=== PATIENT | female | born 1940 | race Caucasian/White ===

== ENCOUNTER 2017-08-10 19:06 | Emergency (ER) | payer OTHER ==
[~2017-08-10] VITALS: Ht 165.1 cm; Wt 70.5 kg
[~2017-08-10 19:06] MED LIST: CHOL400T PO; CYTOMEL PO; GLGKIT PO; INSU100I SC; INSUINJ17 SQ; LEVO100T PO; LVMIPEN SC; MCRK/20 PO; MULT-188 PO; PRM625 PO
[2017-08-10 19:16] VITALS: TEMP 36.5; Ht 165.1 cm; Wt 70.5 kg
[2017-08-10 20:03] LABS: CALCIUM 8.7 mg/dl (8.5-10.1); CREATININE 0.82 mg/dl (0.60-1.20); POTASSIUM 3.9 mmol/L (3.5-5.1)
--- NOTE | 2017-08-10 20:33 | EMERGENCY ROOM VISIT NOTE ---
History Report prepared by Alessio: Renetta Weir Under the Supervision of: Lee DiazO. First contact with patient: 19:11 Chief Complaint: HYPERTENSION Stated Complaint: HYPOGLYCEMIA, HTN History of Present Illness The patient is a 77 year old female who presents to the Emergency Room with complaints of persistent high blood sugar that started 2 hours ago. The patient reports she arrived home around 5pm from a dinner and she notes she took insulin after she ate. She states she felt fine. When she was home, she talked to her sister on the phone and she suggested she check her blood sugar. Her blood sugar was high so her called EMS. When they arrived, her blood sugar was still high so they gave her glucose. The patient's blood pressure was elevated and she states this is unusual for her. The patient denies any nausea. Source of History: patient Onset: 2 hours ago Position: other (low blood sugar) Timing: other (persistent) Associated Symptoms: No nausea Review of Systems See HPI for pertinent positives & negatives. A total of 10 systems reviewed and were otherwise negative. Past Medical & Surgical Hypoglycemia. Family History No pertinent family history Social History Smoking Status: Never Smoker Smokeless Tobacco Use: No Drug Use: none Marital Status: Housing Status: lives with significant other Current/Historical Medications Scheduled Cholecalciferol (Vitamin D), 1 CAP PO DAILY Estrogens, Conjugated (Premarin), 0.625 MG PO DAILY Insulin Detemir (Levemir Flexpen), SC Q12 Insulin Regular (Humulin-R), 2 UNITS SQ QAM Insulin Regular (Humulin-R), 3 UNITS SQ @ LUNCH AND DINNER Levothyroxine Sodium (Synthroid), 100 MCG PO DAILY Multiple Vitamins W/ Minerals (Ocuvite), 1 TAB PO DAILY Potassium Chloride (Potassium Chloride ER), 10 MEQ PO DAILY [Cytomel Sr 9.6 Mcg], 9.6 MCG PO DAILY Scheduled PRN Glucagon (Glucagon Emergency Kit), 1 MG PO UD PRN for prn Insulin Lispro (Human) (Humalog), UNITS SC DIRECTED PRN for prn Allergies Coded Allergies: Adhesives (Unverified Adverse Reaction, Unknown, TAPE "TAKES OFF SKIN". PAPER TAPE AND COBAND ARE OKAY TO USE, 09/27/13) Physical Exam Vital Signs Date Time Temp Pulse Resp B/P (MAP) Pulse Ox O2 Delivery O2 Flow Rate FiO2 08/10/17 20:15 86 20 154/62 96 Room Air 08/10/17 19:16 36.5 79 16 185/62 98 Room Air Physical Exam CONSTITUTIONAL/VITAL SIGNS: Reviewed / noted above. GENERAL: Non-toxic in appearance. INTEGUMENTARY: Warm, dry, and [place]. HEAD: Normocephalic. EYES: without scleral icterus or trauma. ENT/OROPHARYNX: clear and moist. LYMPHADENOPATHY/NECK: Is supple without lymphadenopathy or meningismus. RESPIRATORY: Lungs clear and equal. CARDIOVASCULAR: Regular rate and rhythm. GI/ABDOMEN: Soft and nontender. No organomegaly or pulsatile mass. No rebound or guarding. Normal bowel sounds. EXTREMITIES: Warm and well perfused. BACK: No CVA tenderness. NEUROLOGICAL: Intact without focal deficits. PSYCHIATRIC: normal affect. MUSCULOSKELETAL: Normally developed with good muscle tone. Medical Decision & Procedures Laboratory Results 08/10/17 19:40 Test 08/10/17 19:40 Anion Gap 8.0 mmol/L (3-11) Est Creatinine Clear Calc Drug Dose 58.4 ml/min Estimated GFR () 81.1 Estimated GFR (Non- 70.0 BUN/Creatinine Ratio 21.9 (10-20) Calcium Level 8.7 mg/dl (8.5-10.1) Laboratory results as stated above per my review. ED Course 1910: Previous medical records were reviewed. The patient was evaluated in room A12B. A complete history and physical examination was performed. 2028: On reevaluation, the patient is resting comfortably. I discussed the results and findings with the patient. She verbalized agreement of the treatment plan. She was discharged home. Medical Decision Differential includes acute coronary syndrome, myocardial infarction, CVA, TIA, anemia, infection, pneumonia, UTI, pyelonephritis, poor nutrition, dehydration, electrolyte disturbance,hypoglycemia. This is a 77-year-old female who presents to the ED with a chief complaint of hypoglycemia and hypertension. The patient is an insulin-dependent diabetic. She became confused and EMS was called and she was found to have a blood sugar of 36. They checked her blood pressure and it was elevated and they recommended she come in for evaluation. The patient has no additional complaints. She is feeling back to normal. She is awake, alert and oriented. Initial blood pressure is 185/62. This improved during her stay. Her sodium was 129 and chloride was 97. Glucose is 235. The patient was fed. She was feeling fine. She is felt to be stable for discharge. She does report chronic hyponatremia. The bulk of the patient's hypertension was likely stress related due to her hypoglycemic episode. Medication Reconcilliation Current Medication List: was personally reviewed by me Blood Pressure Screening Patient's blood pressure: Elevated blood pressure Blood pressure disposition: Elevated BP felt to be situational Impression Primary Impression: Hypoglycemia Additional Impression: Hypertension Scribe Attestation The scribe's documentation has been prepared under my direction and personally reviewed by me in its entirety. I confirm that the note above accurately reflects all work, treatment, procedures, and medical decision making performed by me. Departure Information Referrals Nahid Pena D.O. (PCP) Patient Instructions [facility] Problem Qualifiers
[2017-08-10] MEDS ORDERED: INSHRIE SC ×2 (20:39)
[2017-08-10] MEDS ORDERED: LEVO88TA PO (20:39)
[2017-08-10] MEDS ORDERED: LIOT25TA10 PO (20:39)
[2017-08-10] MEDS ORDERED: LVMI SC ×2 (20:39)
[2017-08-10 20:40] VITALS: BP 154/62; PULSE 86; O2SAT 96
== END 2017-08-10 20:40 | disposition home or self-care (01) ==
LOC: EDBD 19:06 → C.EDA 19:08
DX: E16.2 Hypoglycemia, unspecified (principal); I10 Essential (primary) hypertension; Z79.4 Long term (current) use of insulin

== ENCOUNTER 2018-12-20 12:49 | Inpatient (IN) ==
[2018-12-20] MEDS ORDERED: ASPIRIN CHEW 324 MG PO STA (13:07)
--- NOTE | 2018-12-20 13:30 | XRay Report ---
XR chest 1V portable CLINICAL HISTORY: Chest Pain dyspnea COMPARISON STUDY: 12/06/2018 FINDINGS: The bones soft tissues and hemidiaphragms are normal. The cardiomediastinal silhouette is n ormal. The lungs are clear. The pulmonary vasculature is normal. IMPRESSION: Negative chest. The above report was generated using voice recognition software. It may contain grammatical, syntax or spelling errors. Electronically signed by: Farzad Elizabeth M.D. 12/20/2018 1:29 PM
[2018-12-20 14:04] LABS: Basophils # (auto) 0.13 K/uL (0-0.2); Basophils % (auto) 1.4 %; Eosinophils # (auto) 0.06 K/uL (0-0.5); Eosinophils % (auto) 0.6 %; Hematocrit (blood only) 39.9 % (37-47); Hemoglobin 13.7 g/dL (12.0-16.0); Immature Granulocytes # (auto) 0.02 K/uL (0.00-0.02); Immature Granulocytes % (auto) 0.2 %; Lymphocytes # (auto) 1.72 K/uL (1.2-3.4); Lymphocytes % (auto) 18.2 %; Mean Corpuscular Hgb Conc 34.3 g/dL (32-36); Mean Corpuscular Volume 97.1 fL (80-100); Mean Platelet Volume 10.7 fL (7.4-10.4); Monocytes # (auto) 0.62 K/uL (0.11-0.59); Monocytes % (auto) 6.6 %; Neutrophils # (auto) 6.88 K/uL (1.4-6.5); Platelet Count 362 K/uL (130-400); RDW Coefficient of Variation 13.4 % (11.5-14.5); RDW Standard Deviation 47.5 fL (36.4-46.3); Red Blood Count 4.11 M/uL (4.2-5.4); White Blood Count 9.43 K/uL (4.8-10.8)
[2018-12-20 14:15] LABS: D Dimer 470 ug/L FEU (0-500); Partial Thromboplastin Time 27.9 Seconds (21.0-31.0)
[2018-12-20 14:19] LABS: Blood Urea Nitrogen 14 mg/dl (7-18); Calcium 8.7 mg/dl (8.5-10.1); Carbon Dioxide 24 mmol/L (21-32); Chloride 97 mmol/L (98-107); Est GFR (African American) 97.5; Est GFR (Non-African American) 84.2; Glucose 207 mg/dl (70-99); Potassium 3.9 mmol/L (3.5-5.1); Sodium 134 mmol/L (136-145)
[2018-12-20 14:21] LABS: Appearance Urine Clear (Clear); Bacteria Urine Automated Negative (Negative); Bilirubin Urine Negative (Negative); Blood Urine Negative (Negative); Cast Urine Automated 0 /lpf (0-5); Color Urine Yellow; Epithelial Cell Urine Auto >30 /lpf (0-5); Glucose Urine UA Trace (Negative); Ketones Urine 2+ (Negative); Leukocyte Esterase Urine Trace (Negative); Nitrite Urine Negative (Negative); Protein Urine Negative (Negative); RBC Urine Automated 0-4 /hpf (0-4); Specific Gravity Urine 1.016 (1.000-1.030); Urobilinogen Urine Negative (Negative)
[2018-12-20 14:24] LABS: Troponin I < 0.015 ng/ml (0-0.045)
[2018-12-20] MEDS ORDERED: dilTIAZem HCl 125 MG in DEXTROSE 5% 100 ML IV SCH (14:30)
[2018-12-20] MEDS ORDERED: HEPARIN SODIUM/DEXTROSE 25,000 UNITS/500 ML BAG IV SCH (14:45)
--- NOTE | 2018-12-20 14:46 | History & Physical Report ---
Date of Service December 20, 2018 Assessment & Plan (1) Atrial fibrillation with RVR: This is a 78yo F with a PMH of Type 1 diabetes, hypothyroidism, postmenopausal state who presents from PCP's office with tachycardia. Patient was recently admitted to [facility] from 12/06-12/13 for possible partially treated UTI and DKA and was found to have A Fib with RVR. -In ED, found to be afebrile with HR of 120. EKG with A Fib with RVR at 117 vs sinus tachycardia with multiple PACs -ED physician discussed with cardiology group and started on Cardizem drip and IV heparin -No leukocytosis, mag and K normal, CXR and UA wnl. Will add a TSH -Monitor on telemetry, gentle IV fluids -Recent 2D echo on 12/06 with preserved EF at 55-60%, mild concentric LVH -Routine cardiology consult (2) Type 1 diabetes: Well controlled with A1C 6.9 11/2018 -Consult glycemic pharmacist for management (3) HTN (hypertension): Recently started on amlodipine. Currently normotensive -Anxiety thought to be contributing (4) Hypothyroidism: Continue levothyroxine and Cytomel (5) Constipation: Is at baseline. Was recently started on PRN Lactulose -Continue monitoring DVT Ppx: IV heparin Code status: FULL PCP: Bharath Ludwig Dispo: Admitted to telemetry. Plan to return home once medically stable. Patient seen in collaboration with Dr. Joaquin. Please see addendum. History of Present Illness Chief Complaint: tachycardia Primary Care Provider: Linda Ludwig DO This is a 78yo F with a PMH of Type 1 diabetes, hypothyroidism, postmenopausal state who presents from PCP's office with tachycardia. Patient was recently admitted to [facility] from 12/06-12/13 for possible partially treated UTI and DKA. Since discharge home, patient has been feeling gradually better. Went to hospital follow up today and was found to be tachycardic. EKG revealed sinus rhythm with frequent PVCs vs A Fib with RVR and patient was directed to ED for further evaluation. Denies history of A Fib in the past. Denies lightheadedness, visual changes, chest pain, palpitations or SOB. Has been seen by Dr. Tanner in the past [place] [facility] [place]. Denies fever, chills, headache, confusion, nausea, vomiting, abdominal pain, dysuria or increased frequency. Has abnormal bowel habits that are at baseline. In ED, found to be afebrile with HR of 120. EKG with A Fib with RVR at 117. HR seems to decrease to 80s when patient is resting. ED physician discussed with cardiology group and started on Cardizem drip and IV heparin. Allergies Allergy/AdvReac Type Severity Reaction Status Date / Time latex Allergy Intermediate hives Verified 12/20/18 14:33 soybean Allergy Unknown Unverified 12/20/18 14:33 adhesive AdvReac Unknown TAPE Verified 12/20/18 14:33 "TAKES OFF SKIN". PAPER TAPE AND COBAND ARE OKAY TO USE Home Medications Home Medications Medication Instructions Recorded Confirmed Type Cytomel 7.2 mcg PO BID 12/06/18 12/20/18 History Humulin R Regular U-100 Insuln 2 unit SUBCUT DAILYBB 12/06/18 12/20/18 History Humulin R Regular U-100 Insuln 2 unit SUBCUT DAILYBL 12/06/18 12/20/18 History Humulin R Regular U-100 Insuln 3 unit SUBCUT DAILYBD 12/06/18 12/20/18 History Levemir U-100 Insulin 3 unit SUBCUT HS 12/06/18 12/20/18 History Levemir U-100 Insulin 4 unit SUBCUT QAM 12/06/18 12/20/18 History Premarin 0.625 mg PO QAM 12/06/18 12/20/18 History insulin lispro [Humalog U-100 0 unit SUBCUT DIRECTED 12/06/18 12/20/18 History Insulin] levothyroxine [Synthroid] 75 mcg PO QAM 12/06/18 12/20/18 History amlodipine [Norvasc] 5 mg PO BID 12/20/18 12/20/18 History lactulose 15 ml PO BID 12/20/18 12/20/18 History Past Med/Surg History Medical History History of hysterectomy (Chronic) Pulmonary nodule (Chronic) Hypothyroidism (Chronic) Type 1 diabetes (Chronic) Surgical History History of lumpectomy of right breast (Chronic) History of selective laser trabeculoplasty (Chronic) Family History Father Coronary heart disease Mother Lung cancer Social History Preferred Language: Micronesian Communication Ability: Effective Beliefs That Will Affect Care: None Current Living Situation: Spouse Feels Safe at Home: Yes Smoking Status: Never smoker Hx Alcohol Use: Yes Alcohol type: wine Alcohol Intake Frequency: Daily Hx Substance Use: No Review of Systems Review of Systems: At least ten systems reviewed and negative except as noted in the HPI. Physical Exam Physical Exam: General Appearance: WD/WN, vitals as above, NAD, sitting up in bed, appears anxious Head: normocephalic, atraumatic Eyes: normal inspection, PERRL, conjunctivae normal, anicteric sclerae ENT: external ear and nose normal, oropharynx normal Neck: trachea midline, no thyromegaly normal visual inspection Respiratory: normal respiratory effort, lungs clear to auscultation, no wheeze, rales, rhonchi. Normal insp/exp effort, no accessory muscle use Cardiovascular: tachycardic with irregular rate & rhythm, no murmur appreciated, normal peripheral pulses. Vessels: no JVD or carotid bruit Chest: normal inspection of chest Abdomen/GI: normal bowel sounds, soft, nontender, no hepatosplenomegaly Extremities/Musculoskelatal: no cyanosis or clubbing, extremities motor strength 5/5 Neurologic: PERRL, EOMI, accommodation nl, no face palsy, no dysarthria CN's II-XI intact bilaterally and moves all extremities Psychiatric: A+Ox3, euthymic affect Skin: no rashes, normal color, warm/dry Results & Data Vital Signs (Past 12 Hours) Vital Signs Temp Pulse Resp BP Pulse Ox 12/20/18 12:52 36.4 C L 121 H 16 165/78 H 98 Laboratory Results Short CBC 12/20/18 Range/Units 13:45 WBC 9.43 (4.8-10.8) K/uL Hgb 13.7 (12.0-16.0) g/dL Hct 39.9 (37-47) % Plt Count 362 (130-400) K/uL BMP 12/20/18 13:45 Sodium 134 L Potassium 3.9 Chloride 97 L Carbon Dioxide 24 BUN 14 Creatinine 0.70 Glucose 207 H Calcium 8.7 Cardiac Enzymes 12/20/18 Range/Units 13:45 Troponin I < 0.015 (0-0.045) ng/ml Urine 12/20/18 Range/Units 13:50 Urine Color Yellow Urine Appearance Clear (Clear) Urine pH 5.0 (4.5-7.5) Ur Specific [place] 1.016 (1.000-1.030) Urine Protein Negative (Negative) Urine Glucose (UA) Trace H (Negative) Diagnostic Findings CXR: IMPRESSION: Negative chest. ECG Rhythm: atrial fibrillation Findings: + LBBB Code Status & VTE Plan VTE Prophylaxis Plan VTE Prophylaxis will be ordered: Yes Supervising Physician Co-Signing Physician Notes I. Dr. Javier Joaquin, have seen and examined the patient with physician assistant district attorney and agree with the assessment and plan as above and would like to add that This is a patient who was recently discharged from [facility], who follows with [facility] group Dr. Tanner, and presents to the hospital with ATRIAL FIBRILLATION WITH RAPID VENTRICULAR RESPONSE Patient with her Kvng ([phone]; [phone]) that this is first time patient have atrial fibrillation. will continue ANTICOAGULATION WITH ANTICOAGULATION THERAPY WITH HEPARIN IV as initially started in the Emergency department, continue IV diltiazem. May try to transition patient off diltiazem with intermittent metoprolol. 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
[2018-12-20] MEDS ORDERED: Heparin BOLUS **ED Use Only IV STA (15:06)
[2018-12-20] MEDS ORDERED: HEPARIN SOD 5,000 UNIT/0.5 ML VIAL ONE (15:06)
[2018-12-20] MEDS ORDERED: GLUCOSE 10 TABS/TUBE PO PRN (15:51)
[2018-12-20] MEDS ORDERED: LACTULOSE SYRUP 30 GM/45 ML UDP PO PRN (15:51)
[2018-12-20] MEDS ORDERED: DEXTROSE 50% 50 ML SYRINGE IV PRN (15:51)
[2018-12-20] MEDS ORDERED: ACETAMINOPHEN 325 MG TAB PO PRN (15:51)
[2018-12-20] MEDS ORDERED: CARBOHYDRATES FOR HYPOGLYCEMIA PO PRN (15:51)
[2018-12-20] MEDS ORDERED: GLUCOSE 40% GEL 15 GM TUBE PO PRN (15:51)
[2018-12-20] MEDS ORDERED: ONDANSETRON INJ 2 MG/ML 2 ML VIAL IV PRN (15:51)
[2018-12-20] MEDS ORDERED: GLUCAGON FOR INJ 1 MG VIAL SQ PRN (15:51)
[2018-12-20] MEDS ORDERED: POLYETHYLENE (MIRALAX) 17 GM PACK PO PRN (15:51)
[2018-12-20] MEDS ORDERED: PHARMACY GLYCEMIC MGMT CONSULT SCH (16:07)
--- NOTE | 2018-12-20 16:23 | Pharmacy Report ---
Glycemic Control Consultation - Date of Service December 20, 2018 - Scope Scope: Glycemic Pharmacist consulted by Alisson Bojorquez PA-C on 12/20/18 for glycemic control and to write orders per [facility] inpatient glycemic control protocol - Objective Weight: 65 kg Accuchecks BSG (last 24hrs): 12/20/18 13:45 Glucose 207 H Laboratory Data (last 24hrs): 12/20/18 13:45 Potassium 3.9 Carbon Dioxide 24 Anion Gap 13.0 H Creatinine 0.70 Est Cr Clr Drug Dosing 64.0 - Recent Pertinent Medications Outpatient Anti-diabetic Regimen: * Insulin detemir (Levemir) 5 units in AM + 3 units in PM * Regular insulin with meals 2 units with breakfast + 2 units with lunch + 3 units with dinner * Insulin lispro (Humalog) per SSI for hyperglycemia * A1c = 6.8 % 12/07/18 Risk Factors for Insulin Resistance: * Diet: Type 1 DM - Assessment & Plan Assessment & Plan: ASSESSMENT: * 78 year old type 1 diabetic, well controlled at home, admitted for tachycardia today, recently admitted a few weeks ago for UTI and hyperglycemia, known to pharmacy glycemic service. * Will begin patient on home basal dose and CF/CR similar to last admission. Patient did require less carb coverage at lunch time last admission, will consider loosening carb ratio at lunch if we see that trend this admission. PLAN FOR INPATIENT GLYCEMIC CONTROL: * Basal insulin * Levemir 5 units SQ QAM, 3 units HS * Bolus insulin * NovoLog per scale ACHS or Q6hrs while NPO * Goal Range: Low 110 mg/dL - High 140 mg/dL * Correction Factor: 30 mg/dL/unit * Nutritional / Prandial insulin per carb ratio of 1 unit per 9 grams CHO consumed Discharge Recommendations: * A1c at goal, continue outpatient regimen * Please note that the plan above was derived based on current level of insulin resistance and hospital stress. These recommendations are appropriate for inpatient admission only. Plan of care upon discharge will need to be reassessed to avoid potential outpatient hypo/hyperglycemia. Thank you.
[2018-12-20] MEDS ORDERED: METOPROLOL TARTRATE 25 MG TAB PO STA (16:28)
[2018-12-20] MEDS ORDERED: SODIUM CHLORIDE 0.9% 1000ML 1,000 ML IV SCH (16:30)
[2018-12-20] MEDS: INSULIN ASPART 100 UNITS/ML 3 ML PEN SC SCH ×2 (17:17→20:39)
--- NOTE | 2018-12-20 18:20 | Emergency Department Note ---
Entered by Manasa Hernandez acting as a scribe for History of Present Illness General Chief complaint: Arrhythmia/Palpitations Stated complaint: AFIB Time Seen by Provider: 12/20/18 12:59 Source: patient Mode of arrival: ambulatory Limitations: no limitations History of Present Illness Onset (ago): hour(s) 4 Location: chest Radiation: non-radiation Pain Consistency: + intermittent Maximum Pain Intensity: 0 Relieved By: + none Exacerbated By: + none Associated symptoms: + other (-hemoptysis); no chest pain, no nausea/vomiting and no shortness of breath Treatments prior to arrival: none The patient is a 78 year old female who presents to the ED with complaints of palpitations. She reports that Dr. Ludwig of [facility] recommended she be seen because of her EKG today showing atrial fibrillation. The patient recently got out of the hospital here at [facility] for diabetic ketoacidosis and dehydration. She does take daily Insulin. She reports her sugars have been "pretty good" recently. She denies any chest pain or shortness of breath. She denies any hemoptysis. She denies any nausea or vomiting. Patient is currently very upset that she is in the emergency department stating "I am supposed to be admitted to the cardiac floor". Home Medications Home Medications Medication Instructions Recorded Confirmed Type Cytomel 7.2 mcg PO BID 12/06/18 12/20/18 History Humulin R Regular U-100 Insuln 2 unit SUBCUT DAILYBB 12/06/18 12/20/18 History Humulin R Regular U-100 Insuln 2 unit SUBCUT DAILYBL 12/06/18 12/20/18 History Humulin R Regular U-100 Insuln 3 unit SUBCUT DAILYBD 12/06/18 12/20/18 History Levemir U-100 Insulin 3 unit SUBCUT HS 12/06/18 12/20/18 History Levemir U-100 Insulin 4 unit SUBCUT QAM 12/06/18 12/20/18 History Premarin 0.625 mg PO QAM 12/06/18 12/20/18 History insulin lispro [Humalog U-100 0 unit SUBCUT DIRECTED 12/06/18 12/20/18 History Insulin] levothyroxine [Synthroid] 75 mcg PO QAM 12/06/18 12/20/18 History amlodipine [Norvasc] 5 mg PO BID 12/20/18 12/20/18 History lactulose 15 ml PO BID 12/20/18 12/20/18 History Allergies Allergy/AdvReac Type Severity Reaction Status Date / Time latex Allergy Intermediate hives Verified 12/20/18 14:33 soybean Allergy Unknown Unverified 12/20/18 14:33 adhesive AdvReac Unknown TAPE Verified 12/20/18 14:33 "TAKES OFF SKIN". PAPER TAPE AND COBAND ARE OKAY TO USE Past Med/Surg History Medical History History of hysterectomy (Chronic) Pulmonary nodule (Chronic) Hypothyroidism (Chronic) Type 1 diabetes (Chronic) Surgical History History of lumpectomy of right breast (Chronic) History of selective laser trabeculoplasty (Chronic) Family History Father Coronary heart disease Mother Lung cancer Social History Preferred Language: Syriac Communication Ability: Effective Matcher Operator Required: No Beliefs That Will Affect Care: None Current Living Situation: Spouse Feels Safe at Home: Yes Safety Concerns: Feels Safe At This Time Smoking Status: Never smoker Hx Alcohol Use: Yes Alcohol type: wine Alcohol Intake Frequency: Daily Hx Substance Use: No Review of Systems See HPI for pertinent positives & negatives. and A total of 10 systems reviewed and were otherwise negative Physical Exam Vital Signs Vital Signs - 24 hr 12/20/18 12:52 Temperature 36.4 C L Temperature Source Oral Sepsis Recent Fever Within 48 Hours No Sepsis New/Unexplained Change in Mental Status No Sepsis Action Taken by Nursing No Action Required Pulse Rate 121 H Respiratory Rate 16 Blood Pressure 165/78 H Blood Pressure Mean 107 Pulse Oximetry 98 Oxygen Delivery Method Room Air GENERAL: She is oriented to person, place, and time. She appears well-developed and well-nourished. She does not appear distressed. HENT: Exam performed. * Head: Normocephalic and atraumatic. * Right Ear: External ear normal. No mastoid tenderness. * Left Ear: External ear normal. No mastoid tenderness. * Mouth/Throat: The oropharynx is clear and moist. No trismus in the jaw. No dental abscesses or uvula swelling. No oropharyngeal exudate or tonsillar abscesses. EYES: Conjunctivae and EOM are normal. Pupils are equal, round, and reactive to light. Right eye exhibits no discharge. Left eye exhibits no discharge. No scleral icterus. NECK: Normal range of motion. Neck supple. No JVD present. No spinous process tenderness present. No carotid bruit present. No rigidity. No tracheal deviation and normal range of motion present. No Brudzinski's sign and no Kernig's sign noted. CV: Irregular rhythm, tachycardic rate, normal heart sounds and intact distal pulses. There is no peripheral edema. Palpable radial pulses bue. PULM/CHEST: Effort normal and breath sounds normal. No respiratory distress. No stridor. She has no wheezes. She has no rales. Chest Wall: She exhibits no tenderness. ABD: The abdomen is soft. Bowel sounds are normal. She has no distension. No mass is present. There is no tenderness. There is no rebound, no guarding, no Lyman's sign and no tenderness at McBurney's point. Rovsig negative MUSC/SKEL: Normal range of motion. There is no peripheral edema, tenderness or deformity. LYMPH: No cervical adenopathy. NEURO: She is alert and oriented to person, place, and time. She has normal strength. No cranial nerve deficit or sensory deficit. Coordination and gait normal. GCS eye subscore is 4. GCS verbal subscore is 5. GCS motor subscore is 6. cerbellar tests wnl. SKIN: Skin is warm and dry. She is not diaphoretic. PSYCH: She has a normal mood and affect. Her behavior is normal. Judgment and thought content normal. Course 1301: The patient was evaluated in room B6 and a complete history and physical were performed. I checked to make sure the patient was supposed to be a direct admission as she mentioned. She was not, she was referred to the emergency department by her PCP. 1425: Vital signs stable. Labs and imaging within normal limits. I discussed the patients case with [facility]. He is agreeable with the patient being started on Cardizem as well as a Heparin drip. 1434: I discussed the patients case with Gracia Cheema Hospitalist. The patient will be further evaluated. 1440: I discussed the labs and findings with the patient. On reassessment her heart rate is within normal limits. We will hold the Cardizem ip at this time but proceed with Heparin. Consultations Consultation #1: I discussed the patients case with Dr. Donnelly, [facility]. He is agreeable with the patient being started on Cardizem as well as a Heparin drip. Time: 14:25 Consultation #2: I discussed the patients case with Dr. Joaquin, [facility] Hospitalist. The patient will be further evaluated. Time: 14:34 Administered Medications Heparin Sodium/Dextrose (Heparin Sodium/Dextrose) 25,000 units in 500 mls @ 22 mls/hr IV .[id number] [facility]; Protocol Stop: 01/19/19 14:44 Last Admin: 12/20/18 15:07 Dose: 1,100 units/hr, 22 mls/hr Documented by: [id number] Cosigned by: [id number] Sodium Chloride (Nss 1000ml) 1,000 mls @ 70 mls/hr IV .[id number] [facility] Stop: 12/21/18 06:47 Last Admin: 12/20/18 16:36 Dose: 70 mls/hr Documented by: [id number] Insulin Aspart (Novolog Flexpen) 0 units SC [facility]; Protocol Stop: 01/19/19 16:29 Last Admin: 12/20/18 17:17 Dose: 4 units Documented by: [id number] Cosigned by: [id number] Discontinued Medications Aspirin (Aspirin) 324 mg PO NOW STA Stop: 12/20/18 13:08 Last Admin: 12/20/18 13:38 Dose: 324 mg Documented by: [id number] Heparin Sodium (Porcine) (Heparin Iv Bolus) 5,000 units IV NOW STA Stop: 12/20/18 15:07 Last Admin: 12/20/18 15:07 Dose: Not Given Documented by: [id number] Heparin Sodium (Porcine) (Heparin Sodium (Porcine)) Confirm Administered Dose 5,000 units .ROUTE .STK-MED ONE Stop: 12/20/18 15:07 Last Admin: 12/20/18 15:07 Dose: 5,000 units Documented by: [id number] Cosigned by: [id number] Metoprolol Tartrate (Lopressor) 12.5 mg PO ONCE STA Stop: 12/20/18 16:29 Last Admin: 12/20/18 17:39 Dose: 12.5 mg Documented by: [id number] Medical Decision Making Medical Records Attestation: I reviewed the patient's medical records. Home Medications Current Medication List: was personally reviewed by me Laboratory Data Attestation: I reviewed the patient's lab results. Result diagrams: 12/20/18 13:45 12/20/18 13:45 Lab Results 12/20/18 12/20/18 12/20/18 Range/Units 13:45 13:45 13:45 WBC 9.43 (4.8-10.8) K/uL RBC 4.11 L (4.2-5.4) M/uL Hgb 13.7 (12.0-16.0) g/dL Hct 39.9 (37-47) % MCV 97.1 (80-100) fL MCH 33.3 (25-34) pg MCHC 34.3 (32-36) g/dL RDW Std Deviation 47.5 H (36.4-46.3) fL RDW Coeff of Job 13.4 (11.5-14.5) % Plt Count 362 (130-400) K/uL MPV 10.7 H (7.4-10.4) fL Immature Gran % (Auto) 0.2 % Neut % (Auto) 73.0 % Lymph % (Auto) 18.2 % [place] % (Auto) 6.6 % Eos % (Auto) 0.6 % Baso % (Auto) 1.4 % Immature Gran # (Auto) 0.02 (0.00-0.02) K/uL Neut # (Auto) 6.88 H (1.4-6.5) K/uL Lymph # (Auto) 1.72 (1.2-3.4) K/uL [place] # (Auto) 0.62 H (0.11-0.59) K/uL Eos # (Auto) 0.06 (0-0.5) K/uL Baso # (Auto) 0.13 (0-0.2) K/uL PT 10.0 (9.0-12.0) Seconds INR 1.0 (0.9-1.1) APTT 27.9 (21.0-31.0) Seconds PTT Ratio 1.0 D-Dimer 470 (0-500) ug/L FEU Sodium 134 L (136-145) mmol/L Potassium 3.9 (3.5-5.1) mmol/L Chloride 97 L (98-107) mmol/L Carbon Dioxide 24 (21-32) mmol/L Anion Gap 13.0 H (3-11) BUN 14 (7-18) mg/dl Creatinine 0.70 (0.6-1.2) mg/dl Est Cr Clr Drug Dosing 64.0 ml/min Est GFR ( Amer) 97.5 Est GFR (Non-Af Amer) 84.2 BUN/Creatinine Ratio 20.0 (10-20) Glucose 207 H (70-99) mg/dl Lactate (0.4-2.0) mmol/L Calcium 8.7 (8.5-10.1) mg/dl Magnesium 2.0 (1.8-2.4) mg/dl Troponin I < 0.015 (0-0.045) ng/ml Lipase 33 L (73-393) U/L TSH (0.300-4.500) uIu/ml Urine Color Urine Appearance (Clear) Urine pH (4.5-7.5) Ur Specific [place] (1.000-1.030) Urine Protein (Negative) Urine Glucose (UA) (Negative) Urine Ketones (Negative) Urine Blood (Negative) Urine Nitrite (Negative) Urine Bilirubin (Negative) Urine Urobilinogen (Negative) Ur Leukocyte Esterase (Negative) Urine WBC (Auto) (0-5) /hpf Urine RBC (Auto) (0-4) /hpf U Hyaline Cast (Auto) (0-5) /lpf U Epithel Cells (Auto) (0-5) /lpf Urine Bacteria (Auto) (Negative) 12/20/18 12/20/18 12/20/18 Range/Units 13:45 13:45 13:50 WBC (4.8-10.8) K/uL RBC (4.2-5.4) M/uL Hgb (12.0-16.0) g/dL Hct (37-47) % MCV (80-100) fL MCH (25-34) pg MCHC (32-36) g/dL RDW Std Deviation (36.4-46.3) fL RDW Coeff of Job (11.5-14.5) % Plt Count (130-400) K/uL MPV (7.4-10.4) fL Immature Gran % (Auto) % Neut % (Auto) % Lymph % (Auto) % [place] % (Auto) % Eos % (Auto) % Baso % (Auto) % Immature Gran # (Auto) (0.00-0.02) K/uL Neut # (Auto) (1.4-6.5) K/uL Lymph # (Auto) (1.2-3.4) K/uL [place] # (Auto) (0.11-0.59) K/uL Eos # (Auto) (0-0.5) K/uL Baso # (Auto) (0-0.2) K/uL PT (9.0-12.0) Seconds INR (0.9-1.1) APTT (21.0-31.0) Seconds PTT Ratio D-Dimer (0-500) ug/L FEU Sodium (136-145) mmol/L Potassium (3.5-5.1) mmol/L Chloride (98-107) mmol/L Carbon Dioxide (21-32) mmol/L Anion Gap (3-11) BUN (7-18) mg/dl Creatinine (0.6-1.2) mg/dl Est Cr Clr Drug Dosing ml/min Est GFR ( Amer) Est GFR (Non-Af Amer) BUN/Creatinine Ratio (10-20) Glucose (70-99) mg/dl Lactate 1.4 (0.4-2.0) mmol/L Calcium (8.5-10.1) mg/dl Magnesium (1.8-2.4) mg/dl Troponin I (0-0.045) ng/ml Lipase (73-393) U/L TSH 1.520 (0.300-4.500) uIu/ml Urine Color Yellow Urine Appearance Clear (Clear) Urine pH 5.0 (4.5-7.5) Ur Specific [place] 1.016 (1.000-1.030) Urine Protein Negative (Negative) Urine Glucose (UA) Trace H (Negative) Urine Ketones 2+ H (Negative) Urine Blood Negative (Negative) Urine Nitrite Negative (Negative) Urine Bilirubin Negative (Negative) Urine Urobilinogen Negative (Negative) Ur Leukocyte Esterase Trace H (Negative) Urine WBC (Auto) 5-10 H (0-5) /hpf Urine RBC (Auto) 0-4 (0-4) /hpf U Hyaline Cast (Auto) 0 (0-5) /lpf U Epithel Cells (Auto) >30 H (0-5) /lpf Urine Bacteria (Auto) Negative (Negative) Imaging Data Radiologist's Impression: Radiology results as stated below per my review and the radiologist's interpretation: XR chest 1V portable CLINICAL HISTORY: Chest Pain dyspnea COMPARISON STUDY: 12/06/2018 FINDINGS: The bones soft tissues and hemidiaphragms are normal. The cardiomediastinal silhouette is normal. The lungs are clear. The pulmonary vasculature is normal. IMPRESSION: Negative chest. The above report was generated using voice recognition software. It may contain grammatical, syntax or spelling errors. Electronically signed by: Farzad Elizabeth M.D. 12/20/2018 1:29 PM ECG Data Attestation: I personally reviewed and interpreted this ECG as follows: Indication: palpitations Rate (beats per minute): 117 Rhythm: atrial fibrillation Findings: + other (QRS is 126, QTC is 524) and + LBBB Comparison ECG Date: from (12/08/2018) Change: the following changes noted (LBBB was present in previous EKG, but the patient was in sinus rhythm with PAC's, no evidence of afib) Blood Pressure Blood Pressure Findings: Elevated blood pressure Blood Pressure Disposition: further management by hospitalist [facility] Narrative 1301: The patient was evaluated in room B6 and a complete history and physical were performed. I checked to make sure the patient was supposed to be a direct admission as she mentioned. She was not, she was referred to the emergency department by her PCP. 1425: Vital signs stable. Labs and imaging within normal limits. I discussed the patients case with [facility]. He is agreeable with the patient being started on Cardizem as well as a Heparin drip. 1434: I discussed the patients case with Gracia Cheema Hospitalist. The patient will be further evaluated. 1440: I discussed the labs and findings with the patient. On reassessment her heart rate is within normal limits. We will hold the Cardizem drip at this time but proceed with Heparin. Impression & Plan Atrial fibrillation with RVR Critical Care Time Critical Care Time: Yes Total Critical Care Time: 76 I have personally spent 76 minutes of critical care time in the direct management of this patient. This includes bedside care, interpretation of diagnostic studies, and testing, discussion with consultants, patient, and family members, and other required patient management activities. This 76 minutes is in excess of all separately billable procedures. Discharge Plan Visit Data *Final* Discharge Date/Time: 12/20/18 15:39 Chief Complaint: Arrhythmia/Palpitations Stated Complaint: AFIB ED Provider: Bean Ortiz Discharge Problem: Atrial fibrillation with RVR Patient Disposition: Admitted As Inpatient Discharge Instructions Interventions: ED Discharge Assessment Last Done: 12/20/18 15:39 The scribe's documentation has been prepared under my direction and personally reviewed by me in its entirety. I confirm that the note above accurately reflects all work, treatment, procedures, and medical decision making performed by me.
--- NOTE | 2018-12-20 20:14 | CT Scan Report ---
CT head/brain wo con CLINICAL HISTORY: 78 years-old Female presenting with slowed speech, confusion. TECHNIQUE: Multidetector CT imaging of the head was performed without the use of intravenous contrast . IV contrast: None. One or more dose lowering techniques were used consistent with the principles of ALARA (as low as reasonably achievable), including automatic exposure control, mA or kV adjustment t o individual patient size, and/or use of iterative reconstruction. COMPARISON: None. CT DOSE (mGy.cm): The estimated cumulative dose is 614.27 mGy.cm. FINDINGS: Culinary Assistant topogram: Unremarkable. Proportional ventricular and sulcal prominence, likely age-related parenchymal volume loss. No hemorr bridgett. Periventricular and subcortical white matter hypoattenuation, nonspecific but likely indicative of chronic small vessel ischemic change. No acute territorial infarct. No mass effect or midline martine ft. No extra-axial fluid collection. Paranasal sinuses and mastoid air cells clear. Calvarium intact. IMPRESSION: 1. Chronic small vessel ischemic change. No acute intracranial abnormality. Electronically signed by: Bassam Hutson M.D. 12/20/2018 8:13 PM
[2018-12-20] MEDS: METOPROLOL TARTRATE 25 MG TAB PO SCH (20:39)
[2018-12-20] MEDS: AMLODIPINE BESYLATE 5 MG TAB PO SCH (20:40)
[2018-12-20] MEDS ORDERED: INSULIN DETEMIR FLEXPEN/FLEX TOUCH 100 UNITS/ML 3ML SC SCH (21:00)
[2018-12-20 21:27] LABS: Partial Thromboplastin Ratio 4.1
[2018-12-20 21:30] LABS: Partial Thromboplastin Time 110.4 Seconds (21.0-31.0)
[2018-12-21 03:48] LABS: Hematocrit (blood only) 35.6 % (37-47); Mean Corpuscular Hgb Conc 33.7 g/dL (32-36); Mean Platelet Volume 10.6 fL (7.4-10.4); Platelet Count 302 K/uL (130-400); RDW Coefficient of Variation 13.2 % (11.5-14.5); RDW Standard Deviation 46.5 fL (36.4-46.3); Red Blood Count 3.71 M/uL (4.2-5.4); White Blood Count 4.65 K/uL (4.8-10.8)
[2018-12-21] MEDS: INSULIN ASPART 100 UNITS/ML 3 ML PEN SC SCH ×3 (04:00→08:13)
[2018-12-21 04:07] LABS: BUN Creatinine Ratio 22.2 (10-20); Calcium 7.8 mg/dl (8.5-10.1); Creatinine Clr Calc Pharmacy 91.4 ml/min; Est GFR (African American) 109.7; Est GFR (Non-African American) 94.6; Potassium 3.7 mmol/L (3.5-5.1)
[2018-12-21 04:21] LABS: Partial Thromboplastin Ratio 2.1
[2018-12-21] MEDS ORDERED: PNEUMOCOCCAL ADMINISTRATION CHARGE ONE (06:00)
[2018-12-21] MEDS ORDERED: PNEUMOCOCCAL POLYSACCHARIDES 25 MCG/0.5 ML VIAL/SYR IM ONE (06:00)
[2018-12-21] MEDS ORDERED: LEVOTHYROXINE SODIUM 75 MCG TABLET PO SCH (06:30)
[2018-12-21] MEDS: METOPROLOL TARTRATE 25 MG TAB PO SCH (08:03)
[2018-12-21] MEDS: AMLODIPINE BESYLATE 5 MG TAB PO SCH (08:04)
[2018-12-21] MEDS ORDERED: INSULIN DETEMIR FLEXPEN/FLEX TOUCH 100 UNITS/ML 3ML SC SCH ×3 (09:00→21:00)
[2018-12-21] MEDS ORDERED: ESTROGENS, CONJUGATED 0.625 MG TAB PO SCH (09:00)
[2018-12-21] MEDS ORDERED: INSULIN HUMAN REGULAR SC SCH (09:00)
--- NOTE | 2018-12-21 09:54 | Hospitalist Progress Note ---
Date of Service December 21, 2018 Assessment & Plan (1) Atrial tachycardia: (1) Atrial tachycardia admitted with suspected Atrial Fibrillation with RVR based on initial EKG findings started on Metoprolol Tartrate 12.5 mg p.o. twice a day,As well as heparin drip Patient converted to sinus rhythm, heart rate in the 60s, blood pressure stable Pulmonary Disease Specialist Dr. Tanner was consulted Upon further review, EKG felt to be atrial tachycardia Dr. Tanner recommends to continue metoprolol 12.5 mg p.o. twice Follow-up with cardiology clinic in 2 weeks (2) Type 1 diabetes: Well controlled with A1C 6.9 11/2018 Continue usual regimen (3) HTN (hypertension): Toprol tartrate started for atrial tachycardia Continue amlodipine Monitor blood pressure and heart rate (4) Hypothyroidism: Continue levothyroxine and Cytomel (5) Constipation: Continue lactulose Discharge to home today Follow-up with Dr. Ludwig on , December 27, [address] Tanner in 2 weeks Case discussed with patient and her in detail and at length All questions answered They are understanding, comfortable,agreeable with the plan of care Subjective ff up for suspected atrial fibrillation HR 60s, sinus sitting up in bed, comfortable, in good spirits states she feels fine overall denies chest pain, dyspnea, palpitations, dizziness no other symptoms states she is ready for discharge today Review of Systems Review of Systems: All systems reviewed & are unremarkable except as noted in HPI & below Physical Exam Physical Exam: General- oriented x 3, not in distress, speaks in sentences with no effort or accessory muscle use Head- atraumatic Eyes- PERRL, EOMI, anicteric ENT- oropharynx clear Neck- supple, no JVD, no adenopathy, no thyromegaly; carotids +2/2, no bruits appreciated Lungs- clear to auscultation bilaterally, no rales/wheezes Heart- normal rate, regular rhythm; no murmur, no gallop, no rub appreciated Abdomen- normal bowel sounds, nondistended, soft, nontender, no masses or hepatosplenomegaly Extremities- no pretibial edema, no calf tenderness; peripheral pulses intact Neuro- alert, oriented x 3; CN 2-12 grossly intact; motor 5/5 bilaterally;sensation 100% on all extremities; no other gross focal neurologic deficits Skin- warm & dry Results & Data Vital Signs (Past 12 Hours) Vital Signs Temp Pulse Resp BP Pulse Ox 12/21/18 07:16 36.7 C 61 18 130/59 L 94 12/21/18 02:57 36.6 C 61 16 136/63 94 12/20/18 23:36 36.6 C 60 18 124/59 L 96 Laboratory Results Laboratory Results - last 24 hr 12/20/18 12/20/18 12/20/18 13:45 13:45 13:45 WBC 9.43 RBC 4.11 L Hgb 13.7 Hct 39.9 MCV 97.1 MCH 33.3 MCHC 34.3 RDW Std Deviation 47.5 H RDW Coeff of Job 13.4 Plt Count 362 MPV 10.7 H Immature Gran % (Auto) 0.2 Neut % (Auto) 73.0 Lymph % (Auto) 18.2 [place] % (Auto) 6.6 Eos % (Auto) 0.6 Baso % (Auto) 1.4 Immature Gran # (Auto) 0.02 Neut # (Auto) 6.88 H Lymph # (Auto) 1.72 [place] # (Auto) 0.62 H Eos # (Auto) 0.06 Baso # (Auto) 0.13 PT 10.0 INR 1.0 APTT 27.9 PTT Ratio 1.0 D-Dimer 470 Sodium 134 L Potassium 3.9 Chloride 97 L Carbon Dioxide 24 Anion Gap 13.0 H BUN 14 Creatinine 0.70 Est Cr Clr Drug Dosing 64.0 Est GFR ( Amer) 97.5 Est GFR (Non-Af Amer) 84.2 BUN/Creatinine Ratio 20.0 Glucose 207 H POC Glucose Lactate Calcium 8.7 Magnesium 2.0 Troponin I < 0.015 Lipase 33 L TSH Urine Color Urine Appearance Urine pH Ur Specific [place] Urine Protein Urine Glucose (UA) Urine Ketones Urine Blood Urine Nitrite Urine Bilirubin Urine Urobilinogen Ur Leukocyte Esterase Urine WBC (Auto) Urine RBC (Auto) U Hyaline Cast (Auto) U Epithel Cells (Auto) Urine Bacteria (Auto) 12/20/18 12/20/18 12/20/18 13:45 13:45 13:50 WBC RBC Hgb Hct MCV MCH MCHC RDW Std Deviation RDW Coeff of Job Plt Count MPV Immature Gran % (Auto) Neut % (Auto) Lymph % (Auto) [place] % (Auto) Eos % (Auto) Baso % (Auto) Immature Gran # (Auto) Neut # (Auto) Lymph # (Auto) [place] # (Auto) Eos # (Auto) Baso # (Auto) PT INR APTT PTT Ratio D-Dimer Sodium Potassium Chloride Carbon Dioxide Anion Gap BUN Creatinine Est Cr Clr Drug Dosing Est GFR ( Amer) Est GFR (Non-Af Amer) BUN/Creatinine Ratio Glucose POC Glucose Lactate 1.4 Calcium Magnesium Troponin I Lipase TSH 1.520 Urine Color Yellow Urine Appearance Clear Urine pH 5.0 Ur Specific [place] 1.016 Urine Protein Negative Urine Glucose (UA) Trace H Urine Ketones 2+ H Urine Blood Negative Urine Nitrite Negative Urine Bilirubin Negative Urine Urobilinogen Negative Ur Leukocyte Esterase Trace H Urine WBC (Auto) 5-10 H Urine RBC (Auto) 0-4 U Hyaline Cast (Auto) 0 U Epithel Cells (Auto) >30 H Urine Bacteria (Auto) Negative 12/20/18 12/20/18 12/20/18 16:48 20:27 20:57 WBC RBC Hgb Hct MCV MCH MCHC RDW Std Deviation RDW Coeff of Job Plt Count MPV Immature Gran % (Auto) Neut % (Auto) Lymph % (Auto) [place] % (Auto) Eos % (Auto) Baso % (Auto) Immature Gran # (Auto) Neut # (Auto) Lymph # (Auto) [place] # (Auto) Eos # (Auto) Baso # (Auto) PT INR APTT 110.4 H* PTT Ratio 4.1 D-Dimer Sodium Potassium Chloride Carbon Dioxide Anion Gap BUN Creatinine Est Cr Clr Drug Dosing Est GFR ( Amer) Est GFR (Non-Af Amer) BUN/Creatinine Ratio Glucose POC Glucose 179 H 137 H Lactate Calcium Magnesium Troponin I Lipase TSH Urine Color Urine Appearance Urine pH Ur Specific [place] Urine Protein Urine Glucose (UA) Urine Ketones Urine Blood Urine Nitrite Urine Bilirubin Urine Urobilinogen Ur Leukocyte Esterase Urine WBC (Auto) Urine RBC (Auto) U Hyaline Cast (Auto) U Epithel Cells (Auto) Urine Bacteria (Auto) 12/20/18 12/21/18 12/21/18 23:59 03:25 03:25 WBC 4.65 L RBC 3.71 L Hgb 12.0 Hct 35.6 L MCV 96.0 MCH 32.3 MCHC 33.7 RDW Std Deviation 46.5 H RDW Coeff of Job 13.2 Plt Count 302 MPV 10.6 H Immature Gran % (Auto) Neut % (Auto) Lymph % (Auto) [place] % (Auto) Eos % (Auto) Baso % (Auto) Immature Gran # (Auto) Neut # (Auto) Lymph # (Auto) [place] # (Auto) Eos # (Auto) Baso # (Auto) PT INR APTT PTT Ratio D-Dimer Sodium 138 Potassium 3.7 Chloride 105 Carbon Dioxide 28 Anion Gap 5.0 BUN 11 Creatinine 0.49 L Est Cr Clr Drug Dosing 91.4 Est GFR ( Amer) 109.7 Est GFR (Non-Af Amer) 94.6 BUN/Creatinine Ratio 22.2 H Glucose 99 POC Glucose 108 H Lactate Calcium 7.8 L Magnesium Troponin I Lipase TSH Urine Color Urine Appearance Urine pH Ur Specific [place] Urine Protein Urine Glucose (UA) Urine Ketones Urine Blood Urine Nitrite Urine Bilirubin Urine Urobilinogen Ur Leukocyte Esterase Urine WBC (Auto) Urine RBC (Auto) U Hyaline Cast (Auto) U Epithel Cells (Auto) Urine Bacteria (Auto) 12/21/18 12/21/18 12/21/18 03:25 04:02 07:19 WBC RBC Hgb Hct MCV MCH MCHC RDW Std Deviation RDW Coeff of Job Plt Count MPV Immature Gran % (Auto) Neut % (Auto) Lymph % (Auto) [place] % (Auto) Eos % (Auto) Baso % (Auto) Immature Gran # (Auto) Neut # (Auto) Lymph # (Auto) [place] # (Auto) Eos # (Auto) Baso # (Auto) PT INR APTT 57.0 H* PTT Ratio 2.1 D-Dimer Sodium Potassium Chloride Carbon Dioxide Anion Gap BUN Creatinine Est Cr Clr Drug Dosing Est GFR ( Amer) Est GFR (Non-Af Amer) BUN/Creatinine Ratio Glucose POC Glucose 99 91 Lactate Calcium Magnesium Troponin I Lipase TSH Urine Color Urine Appearance Urine pH Ur Specific [place] Urine Protein Urine Glucose (UA) Urine Ketones Urine Blood Urine Nitrite Urine Bilirubin Urine Urobilinogen Ur Leukocyte Esterase Urine WBC (Auto) Urine RBC (Auto) U Hyaline Cast (Auto) U Epithel Cells (Auto) Urine Bacteria (Auto)
[2018-12-21] MEDS ORDERED: LIOTHYRONINE PO SCH (10:00)
--- NOTE | 2018-12-21 10:02 | Discharge Summary ---
Date of Service December 21, 2018 Admission HPI Per Admitting Provider This is a 78yo F with a PMH of Type 1 diabetes, hypothyroidism, postmenopausal state who presents from PCP's office with tachycardia. Patient was recently admitted to [facility] from 12/06-12/13 for possible partially treated UTI and DKA. Since discharge home, patient has been feeling gradually better. Went to hospital follow up today and was found to be tachycardic. EKG revealed sinus rhythm with frequent PVCs vs A Fib with RVR and patient was directed to ED for further evaluation. Denies history of A Fib in the past. Denies lightheadedness, visual changes, chest pain, palpitations or SOB. Has been seen by Dr. Tanner in the past of [facility] cardiology group. Denies fever, chills, headache, confusion, nausea, vomiting, abdominal pain, dysuria or increased frequency. Has abnormal bowel habits that are at baseline. In ED, found to be afebrile with HR of 120. EKG with A Fib with RVR at 117. HR seems to decrease to 80s when patient is resting. ED physician discussed with cardiology group and started on Cardizem drip and IV heparin. Admission Exam Per Admitting Provider General Appearance: WD/WN, vitals as above, NAD, sitting up in bed, appears anxious Head: normocephalic, atraumatic Eyes: normal inspection, PERRL, conjunctivae normal, anicteric sclerae ENT: external ear and nose normal, oropharynx normal Neck: trachea midline, no thyromegaly normal visual inspection Respiratory: normal respiratory effort, lungs clear to auscultation, no wheeze, rales, rhonchi. Normal insp/exp effort, no accessory muscle use Cardiovascular: tachycardic with irregular rate & rhythm, no murmur appreciated, normal peripheral pulses. Vessels: no JVD or carotid bruit Chest: normal inspection of chest Abdomen/GI: normal bowel sounds, soft, nontender, no hepatosplenomegaly Extremities/Musculoskelatal: no cyanosis or clubbing, extremities motor strength 5/5 Neurologic: PERRL, EOMI, accommodation nl, no face palsy, no dysarthria CN's II-XI intact bilaterally and moves all extremities Psychiatric: A+Ox3, euthymic affect Skin: no rashes, normal color, warm/dry Principal Diagnosis Atrial tachycardia Discharge Exam General- oriented x 3, not in distress, speaks in sentences with no effort or accessory muscle use Head- atraumatic Eyes- PERRL, EOMI, anicteric ENT- oropharynx clear Neck- supple, no JVD, no adenopathy, no thyromegaly; carotids +2/2, no bruits appreciated Lungs- clear to auscultation bilaterally, no rales/wheezes Heart- normal rate, regular rhythm; no murmur, no gallop, no rub appreciated Abdomen- normal bowel sounds, nondistended, soft, nontender, no masses or hepatosplenomegaly Extremities- no pretibial edema, no calf tenderness; peripheral pulses intact Neuro- alert, oriented x 3; CN 2-12 grossly intact; motor 5/5 bilaterally;sensation 100% on all extremities; no other gross focal neurologic deficits Skin- warm & dry Discharge Data Allergies Allergy/AdvReac Type Severity Reaction Status Date / Time latex Allergy Intermediate hives Verified 12/20/18 14:33 soybean Allergy Unknown Unverified 12/20/18 14:33 adhesive AdvReac Unknown TAPE Verified 12/20/18 14:33 "TAKES OFF SKIN". PAPER TAPE AND COBAND ARE OKAY TO USE Consultations 12/20/18 14:34 ED Decision to Admit Stat 12/20/18 15:46 Consult Cardiology Routine Ordered Studies 12/20/18 18:21 CT head/brain wo con Urgent CT head/brain wo con CLINICAL HISTORY: 78 years-old Female presenting with slowed speech, confusion. TECHNIQUE: Multidetector CT imaging of the head was performed without the use of intravenous contrast. IV contrast: None. One or more dose lowering techniques were used consistent with the principles of ALARA (as low as reasonably achievable), including automatic exposure control, mA or kV adjustment to individual patient size, and/or use of iterative reconstruction. COMPARISON: None. CT DOSE (mGy.cm): The estimated cumulative dose is 614.27 mGy.cm. FINDINGS: Environmental Health Specialist topogram: Unremarkable. Proportional ventricular and sulcal prominence, likely age-related parenchymal volume loss. No hemorrhage. Periventricular and subcortical white matter hypoattenuation, nonspecific but likely indicative of chronic small vessel ischemic change. No acute territorial infarct. No mass effect or midline shift. No extra-axial fluid collection. Paranasal sinuses and mastoid air cells clear. Calvarium intact. IMPRESSION: 1. Chronic small vessel ischemic change. No acute intracranial abnormality. Hospital Course (1) Atrial tachycardia: (1) Atrial tachycardia admitted with suspected Atrial Fibrillation with RVR based on initial EKG findings started on Metoprolol Tartrate 12.5 mg p.o. twice a day,As well as heparin drip Patient converted to sinus rhythm, heart rate in the 60s, blood pressure stable Private Duty Nurse Dr. Tanner was consulted Upon further review, EKG felt to be atrial tachycardia Dr. Tanner recommends to continue metoprolol 12.5 mg p.o. twice a day Follow-up with cardiology clinic in 2 weeks (2) Type 1 diabetes: Well controlled with A1C 6.9 11/2018 Continue usual regimen (3) HTN (hypertension): Toprol tartrate started for atrial tachycardia Continue amlodipine Monitor blood pressure and heart rate (4) Hypothyroidism: Continue levothyroxine and Cytomel (5) Constipation: Continue lactulose Discharge to home today Follow-up with Dr. Ludwig on , December 27, [address] Tanner in 2 weeks Case discussed with patient and her in detail and at length All questions answered They are understanding, comfortable,agreeable with the plan of care Total Time Total Time Spent Total Time Spent (In Minutes): 50 minutes Discharge Plan Discharge Items Patient Disposition: Home - Self-Care Reason For Visit: AFIB WITH RVR Discharge Diagnosis: ATRIAL TACHYCARDIA Condition on Discharge: Good Activity: As commented below Activity Comment: NO HEAVY EXERTION UNTIL RE-EVALUATED BY PRIMARY CARE PHYSICIAN Lifting: Wait until after follow-up appointment Exercise/Sports: Wait until after follow-up appointment Driving/Machine Use: NO DRIVING UNTIL ALLOWED BY PRIMARY CARE PHYSICIAN Non-emergency contact: Primary Care Provider Call non-emergency contact if: you have any medication questions, your symptoms worsen and you have a fever Follow-up/Referrals: Fidencio Tanner MD [Physician] - Linda Ludwig DO [Primary Care Provider] - 12/27/18 10:55 am Diet: Carb Count or DM1 and Heart Healthy Addtl Attending Provider Instructions: Your new medication is Metoprolol 12.5mg po twice a day for atrial tachycardia. Please call your Primary Care Physician or return to the ER immediately if with weakness, dizziness, palpitations, shortness of breath, low blood pressure (systolic BP less than 100), low heart rate (less than 60 per minute). Always stay well hydrated. Follow up with Dr. Ludwig as noted above. Follow up with Dr. Tanner in 2 weeks. Please call his office for an appointment. Contact information noted above. Pending Studies at Discharge: No Stand-Alone Forms: My [facility] Medications and DC Order Prescriptions: New metoprolol tartrate 25 mg Tablet 12.5 mg PO BID 30 Days Qty: 30 RF: 2 Continued levothyroxine [Synthroid] 75 mcg tablet 75 mcg PO QAM RF: 0 Humulin R Regular U-100 Insuln 100 unit/mL solution 2 unit subcut DAILYBL RF: 0 Humulin R Regular U-100 Insuln 100 unit/mL solution 3 unit subcut DAILYBD RF: 0 Humulin R Regular U-100 Insuln 100 unit/mL solution 2 unit subcut DAILYBB RF: 0 Premarin 0.625 mg tablet 0.625 mg PO QAM RF: 0 insulin lispro [Humalog U-100 Insulin] 100 unit/mL solution subcut DIRECTED RF: 0 Levemir U-100 Insulin 100 unit/mL solution 4 unit subcut QAM RF: 0 Levemir U-100 Insulin 100 unit/mL solution 3 unit subcut HS RF: 0 Cytomel 7.2 mcg PO BID RF: 0 amlodipine [Norvasc] 5 mg tablet 5 mg PO BID RF: 0 lactulose 10 gram/15 mL solution 15 ml PO BID RF: 0 Discharge Orders: Discharge Order (Routine); Ordered 12/21/18 Ordered By: Renard Lozano Admission Data Admit Date/Time: 12/20/18 14:44 Attending Provider: Renard Lozano Admit Provider: Javier Joaquin Primary Care Provider: Linda Ludwig Other Providers: Javier Joaquin ; Bala Moreno
--- NOTE | 2018-12-21 16:22 | Cardiology Consultation ---
Date of Consultation December 21, 2018 Assessment & Plan (1) Abnormal ECG: As above, review of EKGs notes sinus rhythm with frequent and consecutive PACs. There is no evidence of atrial fibrillation. Would discontinue heparin and intravenous diltiazem. I agree with the addition of low-dose metoprolol. Would continue amlodipine for now. If an antihypertensive needs to be discontinue, would favor discontinuation of amlodipine. (2) Atrial tachycardia: The patient carries a history of a paroxysmal SVT. As above, low-dose metoprolol as been initiated. (3) HTN (hypertension): Adequate control on current medical regimen. (4) Hypercholesterolemia: Diet controlled at present. History of Present Illness Attending Physician: Renard Lozano MD History of Present Illness Mrs. Woods is a 78-year-old female admitted yesterday because of presumed atrial fibrillation with a rapid ventricular response. This consultation was obtained to assist in her management. Of note, she follows with me in the outpatient setting. Patient was in her usual state of health until yesterday when she presented to her PCP, Dr. Ludwig. She was noted to have an asymptomatic tachycardia. An EKG was obtained which revealed sinus rhythm with frequent PACs. However, the computer read out on the EKG noted atrial fibrillation with a rapid ventricular response. Patient was sent to the emergency room for further evaluation. On arrival here, her repeat echocardiogram also confirmed sinus rhythm with frequent and consecutive PACs. The computer read out noted atrial fibrillation with rapid ventricular response. For that reason, patient was placed on intravenous heparin and diltiazem and hospital admission was initiated. The patient's EKGs were reviewed with Dr. Moreno who agrees with the diagnosis of sinus rhythm with frequent and consecutive PACs. The patient does carry history of a paroxysmal SVT. She has never had a history of atrial fibrillation. The patient has been active on a daily basis walking up to 2 miles a day for exercise. She has not experienced any exertional chest pain or limiting dyspnea. She further denies syncope, presyncope, PND, orthopnea, lower extremity edema, claudication. Currently, patient resting comfortably in bed without complaints. Past medical history 1. Borderline hypertension 2. Hypercholesterolemia 3. Transient complete left bundle-branch block 4. Diabetes mellitus 5. Diabetic retinopathy 6. Diabetic neuropathy 7. History of hyperthyroidism 8. Hypothyroidism 9. Benign breast nodule 10. Pulmonary nodules 11. Bilateral intra-ocular lens implants 12. 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 Note tobacco One or 2 glasses of wine per day Family history Mother age 78 from lung carcinoma Father at 73 from an SD. Review of systems A 10 point review of systems was negative except for that described above. Allergies Allergy/AdvReac Type Severity Reaction Status Date / Time latex Allergy Intermediate hives Verified 12/20/18 14:33 soybean Allergy Unknown Unverified 12/20/18 14:33 adhesive AdvReac Unknown TAPE Verified 12/20/18 14:33 "TAKES OFF SKIN". PAPER TAPE AND COBAND ARE OKAY TO USE Home Medications Home Medications Medication Instructions Recorded Confirmed Type Cytomel 7.2 mcg PO BID 12/06/18 12/20/18 History Humulin R Regular U-100 Insuln 2 unit SUBCUT DAILYBB 12/06/18 12/20/18 History Humulin R Regular U-100 Insuln 2 unit SUBCUT DAILYBL 12/06/18 12/20/18 History Humulin R Regular U-100 Insuln 3 unit SUBCUT DAILYBD 12/06/18 12/20/18 History Levemir U-100 Insulin 3 unit SUBCUT HS 12/06/18 12/20/18 History Levemir U-100 Insulin 4 unit SUBCUT QAM 12/06/18 12/20/18 History Premarin 0.625 mg PO QAM 12/06/18 12/20/18 History insulin lispro [Humalog U-100 0 unit SUBCUT DIRECTED 12/06/18 12/20/18 Hist ory Insulin] levothyroxine [Synthroid] 75 mcg PO QAM 12/06/18 12/20/18 History amlodipine [Norvasc] 5 mg PO BID 12/20/18 12/20/18 History lactulose 15 ml PO BID 12/20/18 12/20/18 History metoprolol tartrate 12.5 mg PO BID 30 Days #30 tab 12/21/18 Rx Patient History Medical History History of hysterectomy (Chronic) Pulmonary nodule (Chronic) Hypothyroidism (Chronic) Type 1 diabetes (Chronic) Surgical History History of lumpectomy of right breast (Chronic) History of selective laser trabeculoplasty (Chronic) Family History Father Coronary heart disease Mother Lung cancer Social History Preferred Language: [place] Communication Ability: Effective Radiation Control Specialist Required: No Beliefs That Will Affect Care: None Current Living Situation: Spouse Feels Safe at Home: Yes Safety Concerns: Feels Safe At This Time Smoking Status: Never smoker Hx Alcohol Use: Yes Alcohol type: wine Alcohol Intake Frequency: Daily Hx Substance Use: No Physical Exam Physical Exam: In general this is a well-developed well-nourished white female in no acute distress. HEENT exam is negative.Neck reveals normal carotid upstrokes without bruits. Jugular venous pressure is flat at 90. There is no thyromegaly. Cardiovascular exam reveals a nonpalpable PMI with a normal S1 and S2. No murmurs, S3, or S4 are noted. Lungs are clear without rales, rhonchi, or wheezes. Abdomen is soft without bruits. Extremities reveal intact radial artery and posterior tibial pulses bilaterally. There is no peripheral edema. Results & Data Vital Signs (Past 12 Hours) Vital Signs Temp Pulse Pulse Resp BP BP Pulse Ox 12/21/18 10:14 36.7 C 61 18 137/80 130/59 L 94 12/21/18 08:00 61 12/21/18 07:16 36.7 C 61 18 130/59 L 94 Diagnostic Findings EKG tracings are reviewed above. arboreal scientist notes sinus rhythm with frequent and consecutive PACs. PG Care Time/CCT Total # of Minutes Spent Total Time Spent with Patient: Total time spent is greater than 50% in coordination of care (as documented) at patient's floor/unit and/or counseling patient:
== END 2018-12-21 10:52 | disposition home or self-care (01) | DRG 310 ==
LOC: ED 12:49 → 2E 14:44